=== PATIENT | female | born 1985 | race African-American/Black ===

== ENCOUNTER 2016-08-16 10:26 | Emergency (ER) | payer MEDICAID ==
--- NOTE | 2016-08-16 11:35 | ED Physician Chart ---
Chief Complaint/HPI - Patient Information Date Seen:: 08/16/16 Time Seen:: 11:10 Chief Complaint:: chills, headache, cough History of Present Illness:: onset two days ago of chills, headache and cough. Sputum is slightly yellow. Temperature not taken. Vomited once in the ED. No influenza vaccination this season. Allergies:: Allergies Allergy/AdvReac Type Severity Reaction Status Date / Time No Known Allergies Allergy Verified 08/16/16 10:49 Vitals:: Vital Signs - 8 hr 08/16/16 08/16/16 10:51 11:06 Temp 97.8 F 97.8 F HR 88 88 RR 18 16 BP 129/70 120/70 O2 Sat % 100 100 Historian:: Patient Review:: Nurse's Note Reviewed Review of Systems - Review of Systems General/Constitutional: Chills Skin: No skin lesions Head: Headache Eyes: No loss of vision ENT: No earache Neck: No neck pain Cardio Vascular: No chest pain, No palpitations Pulmonary: Cough, Sputum GI: Vomiting G/U: No dysuria, No hematuria Musculoskeletal: No bone or joint pain Psychiatric: No prior psych history Hematopoietic: No bruising Allergic/Immuno: No urticaria Neurological: No syncope Past Medical History - Past Medical History Past Medical History: No significant medical hx Family History: HTN Social History: Non Smoker, No Alcohol Surgical History: None Psychiatricy History: None Medication: None Family Medical History - Family Member Mother History Unknown: Yes Ethnicity: Non- Living Status: Still Living Physical Exam - Physical Examination General/Constitutional: Well-developed, well-nourished, Alert, No distress Head: Atraumatic Eyes: Lids, conjuctiva normal, PERRL Skin: Nl inspection, No rash, No skin lesions, No ecchymosis, Well hydrated ENMT: External ears, nose nl, TM canals nl, Nasal exam nl, Lips, teeth, gums nl , Oropharynx nl, Tonsils nl Neck: No nuchal rigidity Respiratory: Nl effort/Exclusion, Clear to Auscultation, No Wheeze/Rhonchi/Rales Cardio Vascular: RRR, No murmur, gallop, rubs GI: No tenderness/rebounding/guarding, No organomegaly, No hernia, Normal BS's, Nondistended, No mass/bruits : No CVA tenderness Extremities: No tenderness or effusion, No edema, Normal digits & nails Neuro/Psych: Alert/oriented, No focal deficits Misc: Normal back Labs/Radiology/EKG Results - Lab Results Results: Laboratory Results - last 24 hr 08/16/16 11:25 Influenza A (Rapid) NEG FOR INF A Influenza B (Rapid) NEG FOR INF B ED Septic Shock - . Is Septic Shock (SBP<90, OR Lactate>4 mmol\L) present?: No - <6hrs of presentation: Vital Signs: Vital Signs - 8 hr 08/16/16 08/16/16 10:51 11:06 Temp 97.8 F 97.8 F HR 88 88 RR 18 16 BP 129/70 120/70 O2 Sat % 100 100 Reassessment (Disposition) - Reassessment Reassessment Condition:: Unchanged - Diagnosis Diagnosis:: acute viral syndrome - Aftercare/Follow up Instructions Medication Prescribed:: Ibuprofen 400 mg #24 Sig 1 TID with meals - Patient Disposition Discharge/Transfer:: Home Condition at Disposition:: Stable, Unchanged
== END 2016-08-16 12:15 | disposition home or self-care (01) ==
LOC: ER 10:26
DX: B34.9 Viral infection, unspecified (principal)
CPT/HCPCS: 87804-TC; Z7502